=== PATIENT | male | born 1995 | race Caucasian/White ===

== ENCOUNTER 2021-01-20 15:08 | Inpatient (IN) | payer BC ==
[~2021-01-20 15:08] MED LIST: CEPHALEXIN250 M1; LORTAB 5/500 501 TAB PO; MOTRIN 600600 MG/TAB PO; ZOFRAN 4MG T4 MG/TAB PO
--- NOTE | 2021-01-20 17:45 | NUR ---
Patient arrived per private vehicle from [place] [facility]. INT in place to RAC. Dr Morgan notified of patient arrival. No c/o at this time.
[2021-01-20 18:47] VITALS: BP 109/62; PULSE 68; TEMP 99.5
[2021-01-20 19:23] VITALS: BP 127/62; PULSE 62; TEMP 98.3
[2021-01-20 20:00] VITALS: BP 127/62; PULSE 62; TEMP 98.3
--- NOTE | 2021-01-20 22:07 | NUR ---
PT RESTING COMFORTABLY IN BED. EVENING MEDICATIONS GIVEN. PT COMPLAINING OF PAIN, MEDICATION GIVEN PER ORDERS. PT STATES HE IS VERY SORE TO THE TOUCH ON HIS ABDOMEN. CALL LIGHT WITHIN REACH. WILL CONTINUE TO MONITOR.
[2021-01-20 23:42] VITALS: BP 130/53; PULSE 69; TEMP 98.3
[2021-01-21] VITALS (11 sets, daily range): BP systolic 110–137; BP diastolic 45–85; PULSE 51–72; TEMP 97.7–99.8
[2021-01-21 06:58] LABS: HEMATOCRIT 42.8 % (42.0-52.0); MEAN CELL VOLUME 87 fl (80.0-100.0); MEAN CORPUSCULAR HEMOGLOBIN 29 pg (27.0-31.0); MEAN CORPUSCULAR HGB CONC 33 g/dl (33.0-37.0); MEAN PLATELET VOLUME 10.4 fl (7.4-10.4); PLATELET COUNT 219 K/mm3 (130-400); REDCELL DISTRIBUTION WIDTH-CV 13.2 % (11.5-14.5)
[2021-01-21 07:03] LABS: INR 1.4 (0.8-3.0); PROTHROMBIN TIME 15.3 SECONDS (9.7-12.8)
[2021-01-21 07:07] LABS: ALBUMIN 3.6 gm/dL (3.5-5.0); CREATININE, serum 1.1 (0.66-1.25); POTASSIUM 4.3 mmol/L (3.4-5.0); TOTAL PROTEIN 6.5 gm/dL (6.4-8.2)
[2021-01-21 07:19] LABS: BAND 9 % (0-10); EOSINOPHIL 3 % (0-4); LYMPHOCYTE 13 % (20.0-51.0); NEUTROPHILS 68 % (42.0-75.2); PLATELET ESTIMATE NORMAL (NORMAL)
--- NOTE | 2021-01-21 08:00 | NUR ---
Patient laying in bed sleeping. Easily awakened with verbal command, mother at the bedside. Reporting pain in abdomen, pain medication given as requested. VSS. IV CDI, fluids infusing. Patient NPO for a procedure. No further needs expressed from the patient. Call light within reach
--- NOTE | 2021-01-21 09:17 | NUR ---
Patient taken down by bed for a procedure
[2021-01-21] MEDS ORDERED: AMOXICILLIN 8751 TAB PO (11:49)
[2021-01-21] MEDS ORDERED: MOTRIN 600600 MG/TAB PO (11:49)
[2021-01-21] MEDS ORDERED: NORCO 325 MG-51 TAB PO ×2 (11:49)
--- NOTE | 2021-01-21 12:07 | NUR ---
Patient to room 348 by bed from the PACU. Patient Alert and talking, partially confused. Mother at the bedside. VSS. IV CDI, fluids infusing. 5x lap sites CDI. Patient resting in bed. No further needs expressed. Call light within reach
--- NOTE | 2021-01-21 13:45 | NUR ---
Nurse assisted the patient on the bed arellano and also removed the amos. Pericare before and after removal. 10ml removed from genna balloon. Patient tolerated well. Encouraged the patient to increase PO intake. Will continue to monitor. Call light within reach
--- NOTE | 2021-01-21 14:14 | NUR ---
SW attempted to meet with patient to complete intake. Nurse provides that patient will soon be going into surgery and will be there for a few hours. SW will follow up to complete intake when patient is available. SW will continue to follow.
--- NOTE | 2021-01-21 14:30 | NUR ---
Patient had complaints of abdominal pain and the mother who has been at the bedside noticed that the patient is looking jaundice and has some yellowing in the eyes. Nurse notified the doctor. Pain medication given and patient ambulated in the hallway with a standby assist. Patient stated that the walking did help with the bloating feeling in his abdomen. Will continue to monitor. Call light within reach
[2021-01-21 17:03] LABS: ALBUMIN 4.1 gm/dL (3.5-5.0); CALCIUM 8.3 mg/dL (8.4-10.2); CREATININE, serum 1.03 (0.66-1.25); POTASSIUM 4.6 mmol/L (3.4-5.0)
[2021-01-21 17:04] LABS: HEMATOCRIT 43.7 % (42.0-52.0); HEMOGLOBIN 14.2 g/dl (13.5-18.0)
--- NOTE | 2021-01-21 17:30 | NUR ---
Patient walked one lap in the hallway with the mother by his side. Patient tolerated well. Patient assisted back into bed. States discomfort in abdomen better. Call light within reach
--- NOTE | 2021-01-21 18:19 | NUR ---
Patient has had complaints of abdominal discomfort and pain. Nurse encouraging patient to walk in the hallway. Doctor notified of the changes in patients conditions. VSS. IV CDI, fluids infusing. Lap sites x5 CDI. Patient reporting that walking has helped with the abdominal discomfort. No further needs expressed. Call light within reach
--- NOTE | 2021-01-21 19:36 | NUR ---
PT ASKING FOR PAIN MEDS, TOO EARLY FOR NORCO. PT REPORTS NO RELIEF WITH NORCO. DR CHEUNG NOTIFIED, NEW ORDERS RECEIVED. MEDICATED WITH PERCOCET 1 TAB PO AT THIS TIME. ABD DISTENDED, SOFT. BS ACTIVE. ENCOURAGED TO WALK.
--- NOTE | 2021-01-21 20:18 | NUR ---
PT TAKES HS MEDS INCLUDING SECOND PERCOCET FOR PAIN 11/17. IVF AT 100CC/HR TO RT AC, NO REDNESS OR SWELLING NOTED. MINIMAL YELLOW SCLERA. REPORTS VOIDING WITHOUT PROBLEM.
--- NOTE | 2021-01-22 | NUR ---
PT RESTING QUIETLY. NO REQUESTS FOR PAIN MEDS AT THIS TIME. ROBOTIC SITES X5 TO ABD GLUED AND DRY.
--- NOTE | 2021-01-22 03:33 | NUR ---
PT COMPLAINING OF PAIN TO ABD. MEDICATED WITH PERCOCET 1 TAB PO AT THIS TIME. ATTEMPTED TO INSTRUCT PT ON PROPER WAY TO GET OUT OF BED TO PREVENT STRAINING HIS ABDOMEN, PT DIDN'T WANT TO LISTEN JUST WANTED STAFF TO HELP HIM UP. TO BATHROOM TO VOID AND BACK TO BED ON HIS OWN.
[2021-01-22 03:44] VITALS: BP 125/62; PULSE 96; TEMP 98.6
[2021-01-22 06:33] LABS: BASO % 0.1 % (0.0-2.0); EOS # 0.1 (0.0-0.7); EOS % 0.4 % (0-4.0); GRAN % 85.3 % (42.2-75.2); HEMATOCRIT 39.3 % (42.0-52.0); HEMOGLOBIN 12.8 g/dl (13.5-18.0); LYMPH # 1.1 (1.2-3.4); LYMPH % 7.6 % (20.0-51.0); MEAN CELL VOLUME 87 fl (80.0-100.0); MEAN CORPUSCULAR HEMOGLOBIN 28 pg (27.0-31.0); MEAN CORPUSCULAR HGB CONC 33 g/dl (33.0-37.0); MEAN PLATELET VOLUME 10.5 fl (7.4-10.4); MONO # 0.9 (0.1-0.6); MONO % 6.2 % (1.7-9.3); PLATELET COUNT 208 K/mm3 (130-400); REDCELL DISTRIBUTION WIDTH-CV 13.3 % (11.5-14.5)
[2021-01-22 06:48] LABS: ALBUMIN 3.4 gm/dL (3.5-5.0); BILIRUBIN,TOTAL 1.9 mg/dL (0.0-1.0); CREATININE, serum 0.86 (0.66-1.25); POTASSIUM 4.3 mmol/L (3.4-5.0); TOTAL PROTEIN 6.1 gm/dL (6.4-8.2)
[2021-01-22 07:52] VITALS: BP 113/56; PULSE 59; TEMP 97.6
--- NOTE | 2021-01-22 07:57 | NUR ---
Patient laying in bed on his cell phone. A&Ox4. VSS. IV CDI, fluids infusing. Reporting pain in abdomen that is better than yesterday. Pain medication given when requested. Lap sites x 5 CDI. Nurse encouraged patient to ambulate and to increase PO intake. Patient verbalized an understanding. Call light within reach
--- NOTE | 2021-01-22 10:26 | NUR ---
Plan is to return home in [facility]. SW met with patient in room with Mother Alee Villanueva . Patient gave permission to talk with mother about care supports. Mag reports that he does not have a PCP. Patient is okay with a referral for PCP. Patient reports they use [facility] for medications without issue. Patient denies the use of any DME EPC and has a brother that he resides with to support care. Patient reports that he would want pain management prior to going home. Patient reports that his pain is at a 3-4 out of 10. Patient shares that he would like o go home and feels that he could. Patient shares that overnight was not great due to being in pain for 4 hours. Patient indicaed that the rest of his care has been great. Educated on supports for care. WIll have SW follow up with patient for a follow-up on Saturday morning. Will continue to support care.
[2021-01-22 12:26] VITALS: BP 118/58; PULSE 58; TEMP 98.1
[2021-01-22] MEDS ORDERED: PERCOCET 325 MG1 TA2 PO (12:41)
--- NOTE | 2021-01-22 13:05 | NUR ---
Discharge paperwork reviewed with the patient. Patient and mother verbalized an understanding to follow doctors orders. IV removed, tip intact, gauze and coban applied. Patient ambulated independently to ER entrance and vehicle. Discharge paperwork and personal belongings with the patient.
== END 2021-01-22 13:05 | disposition home or self-care (01) | DRG 419 ==
LOC: SURG 15:08
PROVIDERS: ADMIT Surgery
PROC: 8E0W4CZ Robotic Assisted Procedure of Trunk Region, Percutaneous Endoscopic Approach (ICD-10-PCS; 2021-01-21)
PROC: BF13YZZ Fluoroscopy of Gallbladder and Bile Ducts using Other Contrast (ICD-10-PCS; 2021-01-21)
PROC: 0FT44ZZ Resection of Gallbladder, Percutaneous Endoscopic Approach (ICD-10-PCS; principal; 2021-01-21 09:00)
DX: K80.00 Calculus of gallbladder with acute cholecystitis without obstruction (principal); E80.6 Other disorders of bilirubin metabolism; K59.00 Constipation, unspecified
CPT/HCPCS: J0330; J1100; J1170; J1815; J2405; J2543; J2704; J3010; J7030; Q9967